=== PATIENT | female | born 1980 | race Caucasian/White ===

== ENCOUNTER → 2018-06-04 11:25 | Outpatient (CLI) | payer OTHER, SELFPAY ==
[2018-06-04 14:19] LABS: hCG Titer Quant., Serum < 1 mIU/mL (<9 non-preg)
== END ==
PROVIDERS: Visit Provider Obstetrics & Gynecology
DX: N91.2 Amenorrhea, unspecified (principal)
CPT/HCPCS: 36415; 84702

== ENCOUNTER → 2018-08-22 13:41 | Outpatient (CLI) | payer OTHER, SELFPAY ==
[2014-05-28 08:35] VITALS: BMI 32.4
[2018-08-22 14:59] LABS: hCG Titer Quant., Serum 345 mIU/mL (1-3)
[2018-08-22 15:09] LABS: Progesterone Level 1.52 ng/mL (See Comment)
== END ==
PROVIDERS: Visit Provider Obstetrics & Gynecology
DX: O02.1 Missed abortion (principal); Z3A.00 Weeks of gestation of pregnancy not specified
CPT/HCPCS: 36415; 84144; 84702

== ENCOUNTER → 2018-08-25 09:59 | Outpatient (CLI) | payer OTHER, SELFPAY ==
[2018-08-25 11:10] LABS: hCG Titer Quant., Serum 228 mIU/mL (1-3)
== END ==
PROVIDERS: Visit Provider Obstetrics & Gynecology
DX: O20.0 Threatened abortion (principal); Z3A.00 Weeks of gestation of pregnancy not specified
CPT/HCPCS: 36415; 84702

== ENCOUNTER → 2018-09-02 09:23 | Outpatient (CLI) | payer OTHER, SELFPAY ==
[2018-09-02 11:13] LABS: hCG Titer Quant., Serum 131 mIU/mL (1-3)
== END ==
PROVIDERS: Visit Provider Obstetrics & Gynecology
DX: O20.0 Threatened abortion (principal); Z3A.00 Weeks of gestation of pregnancy not specified
CPT/HCPCS: 36415; 84702

== ENCOUNTER → 2018-09-16 10:21 | Outpatient (CLI) | payer OTHER, SELFPAY ==
[2018-09-16 11:35] LABS: hCG Titer Quant., Serum 29 mIU/mL (1-3)
== END ==
PROVIDERS: Visit Provider Obstetrics & Gynecology
DX: O20.0 Threatened abortion (principal); Z3A.00 Weeks of gestation of pregnancy not specified
CPT/HCPCS: 36415; 84702

== ENCOUNTER → 2018-10-07 09:32 | Outpatient (CLI) | payer OTHER, SELFPAY ==
[2018-10-07 12:06] LABS: hCG Titer Quant., Serum < 1 mIU/mL (1-3)
== END ==
PROVIDERS: Visit Provider Obstetrics & Gynecology
DX: O20.0 Threatened abortion (principal); Z3A.00 Weeks of gestation of pregnancy not specified
CPT/HCPCS: 36415; 84702

== ENCOUNTER → 2019-05-29 12:08 | Outpatient (CLI) | payer OTHER, SELFPAY ==
--- NOTE | 2019-05-29 12:30 | RAD_ITS ---
STUDY: HYSTEROSALPINGOGRAM. REASON FOR EXAM: Female, 38 years old. INFERTILITY -- 37 FLUORO SEC, 14.16mGy, 3 FLUORO SPOTS FLUOROSCOPY TIME (if supplied): ( 37 seconds ) minutes/seconds TECHNIQUE: A hysterosalpingogram was performed by the pallet assembler. Imaging was provided. COMPARISON: None. FINDINGS: The uterus is unremarkable. Both fallopian tubes were patent with free spill. RAD/Salpingogram IMPRESSION: Unremarkable hysterosalpingogram. Electronically Signed: Lopez Soriano, at 13:17 EDT , Service support ,
== END ==
PROVIDERS: PCP Family Medicine; Referring Provider Obstetrics & Gynecology; Visit Provider Obstetrics & Gynecology
DX: N97.9 Female infertility, unspecified (principal)
CPT/HCPCS: 58340; 74740; Q9967

== ENCOUNTER → 2020-05-16 11:43 | Outpatient (CLI) | payer OTHER, SELFPAY ==
[2014-05-28 08:35] VITALS: BMI 32.4
[2020-05-16 13:16] LABS: hCG Titer Quant., Serum 2 mIU/mL (1-3)
== END ==
PROVIDERS: PCP Family Medicine; Visit Provider Obstetrics & Gynecology Reproductive Endocrinology
DX: O02.1 Missed abortion (principal)
CPT/HCPCS: 36415; 84702